=== PATIENT | female | born 1935 | race Caucasian/White ===

== ENCOUNTER → 2017-07-06 | Outpatient (CLI) | payer MEDICARE | LOC: LABWHC1 10:00 | PROVIDERS: ATTEND Internal Medicine | DX: R19.7 Diarrhea, unspecified (principal) | CPT/HCPCS: 87324; 89055 ==

== ENCOUNTER → 2017-07-11 | Outpatient (CLI) | payer MEDICARE | END | disposition home or self-care (01) | LOC: LABWHC1 12:48 | PROVIDERS: ATTEND Internal Medicine | DX: R19.7 Diarrhea, unspecified (principal) | CPT/HCPCS: 87045; 87046; 89055 ==

== ENCOUNTER → 2017-07-17 | Outpatient (CLI) | payer MEDICARE ==
--- NOTE | 2017-07-18 10:13 | ECHOF ---
Referral Reason:I35.0 Aortic valve stenosis MEASUREMENTS -------- HEIGHT: 165.1 cm WEIGHT: 90.7 kg BP: IVSd: 1.4 cm (0.6 - 1.1) LVIDd: 3.6 cm (3.9 - 5.3) LVPWd: 1.3 cm (0.6 - 1.1) IVSs: 1.6 cm LVIDs: 2.0 cm LVPWs: 1.7 cm LAESV Index (A-L): 22.39 ml/m Ao Diam: 2.8 cm (2.0 - 3.7) AV Cusp: 1.1 cm (1.5 - 2.6) LA Diam: 3.4 cm (2.7 - 3.8) MV EXCURSION: 13.536 mm (> 18.000) MV EF SLOPE: 21 mm/s (70 - 150) EPSS: 0.2 cm MV E Ronny: 0.64 m/s MV DecT: 246 ms MV A Ronny: 1.20 m/s MV E/A Ratio: 0.53 AV maxP.55 mmHg AV meanP.00 mmHg AR PHT: 503 ms RAP: 5.00 mmHg RVSP: 26.63 mmHg FINDINGS -------- Sinus rhythm. This was a technically good study. The left ventricular size is normal. There is mild concentric left ventricular hypertrophy. Overa ll left ventricular systolic function is normal with, an EF between 55 - 60 %. The right ventricle is normal in size and function. The left atrium is normal in size. The right atrium is normal in size. Aortic valve is trileaflet and is mildly thickened. There is mild aortic regurgitation. There is mild aortic stenosis present. Peak/mean gradient across the Aortic Valve is 22.55mmHg / 13.00mmHg. The mitral valve leaflets are mildly thickened. Mild mitral regurgitation is present. Mild tricuspid regurgitation present. The right ventricular systolic pressure, as measured by Doppl er, is 26.63mmHg. Pulmonic valve appears structurally normal. The aortic root, ascending aorta and aortic arch are normal. The pericardium is normal. CONCLUSIONS -------- 1. Sinus rhythm. 2. This was a technically good study. 3. The left ventricular size is normal. 4. There is mild concentric left ventricular hypertrophy. 5. Overall left ventricular systolic function is normal with, an EF between 55 - 60 %. 6. The right ventricle is normal in size and function. 7. The left atrium is normal in size. 8. The right atrium is normal in size. 9. Aortic valve is trileaflet and is mildly thickened. 10. There is mild aortic regurgitation. 11. There is mild aortic stenosis present. 12. Peak/mean gradient across the Aortic Valve is 22.55mmHg / 13.00mmHg. 13. The mitral valve leaflets are mildly thickened. 14. Mild mitral regurgitation is present. 15. Mild tricuspid regurgitation present. 16. The right ventricular systolic pressure, as measured by Doppler, is 26.63mmHg. 17. Pulmonic valve appears structurally normal. 18. The aortic root, ascending aorta and aortic arch are normal. 19. The pericardium is normal. [employer]: Katya Trotter RDCS
== END | disposition home or self-care (01) ==
LOC: RADECHMAIN 13:22
PROVIDERS: ATTEND Internal Medicine
DX: I08.3 Combined rheumatic disorders of mitral, aortic and tricuspid valves (principal)
CPT/HCPCS: 93306

== ENCOUNTER → 2019-08-28 | Outpatient (CLI) | payer MEDICARE | END | disposition home or self-care (01) | LOC: LABWHC1 10:27 | PROVIDERS: ATTEND Internal Medicine | DX: Z03.818 Encounter for observation for suspected exposure to other biological agents ruled out (principal) | CPT/HCPCS: 36415; 86769 ==

== ENCOUNTER → 2021-11-24 | Outpatient (CLI) | payer MEDICARE ==
--- NOTE | 2021-11-24 13:13 | CT ---
EXAMINATION TYPE: CT brain wo con DATE OF EXAM: 11/24/2021 COMPARISON: None HISTORY: Transient cerebral ischemic attack CT DLP: 1072.3 mGycm Automated exposure control for dose reduction was used. FINDINGS: Intracranial atherosclerotic changes are seen. Mild to moderate generalized degenerative change with low attenuation in the white matter which is nonspecific. Most likely on the basis of remote white ma tter ischemia. No acute hemorrhage or mass effect. Craniocervical junction maintained. There is a partially empty sella turcica. Calvarium intact. Hyper ostosis of the frontal bone. Minimal changes of ethmoidal chronic sinusitis. Orbits symmetric. IMPRESSION: A MILD AMOUNT OF DEGENERATIVE CHANGE WITH NONSPECIFIC LOW ATTENUATION IN THE WHITE MATTER MOST TYPICA L OF REMOTE ISCHEMIC WHITE MATTER CHANGE. PARTIALLY EMPTY SELLA TURCICA.
== END | disposition home or self-care (01) ==
LOC: RADCTMAIN 12:37
PROVIDERS: ATTEND Internal Medicine
DX: G45.9 Transient cerebral ischemic attack, unspecified (principal)
CPT/HCPCS: 70450

== ENCOUNTER → 2022-07-04 | Outpatient (CLI) | payer MEDICARE ==
--- NOTE | 2022-07-04 12:55 | BD ---
EXAMINATION TYPE: Axial Bone Density DATE OF EXAM: 07/04/2022 CLINICAL HISTORY: 86 years old Female. ICD-10 CODE: M85.851 Osteopenia right hip Height: 64.5 Weight: 202 FRAX RISK QUESTIONS: Family History (Parent hip fracture): no History of Fracture in Adulthood: no Secondary Osteoporosis: no Rheumatoid Arthritis: no RISK FACTORS HISTORY OF: Family History of Osteoporosis: no Active: yes Diet low in dairy products/other sources of calcium: no Postmenopausal woman: yes Lost more than 2 inches in height since high school: no Frequent falls: no Poor Health: no MEDICATIONS: Thyroid Medications: yes Which medication: Levothyroxine How Lon+ years Additional Medications: no Additional History: yes cervical cancer EXAM MEASUREMENTS: Bone mineral densitometry was performed using the [employer] System. Bone mineral density as measured about the Lumbar spine is: ----- L1-L4(G/cm2): 1.264 T Score Values are as follows: ----- L1: -1.4 ----- L2: 0.4 ----- L3: 2.3 ----- L4: 1.5 ----- L1-L4: 0.7 Z Score Values are as follows: ----- L1: -0.4 ----- L2: 1.5 ----- L3: 3.4 ----- L4: 2.6 ----- L1-L4: 1.8 Bone mineral density has: Increased 17.2% since study of: 07/08/2013 Bone mineral density about the R hip (g/cm2): 0.885 Bone mineral density about the L hip (g/cm2): 0.858 T Score values are as follows: -----R Neck: -1.1 -----L Neck: -1.0 -----R Total: -1.0 -----L Total: -1.2 Z Score values are as follows: -----R Neck: 0.9 -----L Neck: 1.0 -----R Total: 0.9 -----L Total: 0.6 Bone mineral density has: Decreased -3.5% since study of: 07/08/2013 FRAX%s: The graph provided illustrates a 9.2% chance for a major osteoporotic fx and a 2.3% chance fo r the hips probability for fx in 10 years time. IMPRESSION: Osteopenia (T Score between -2.5 and -1). There is slightly increased risk of fracture and the patient may be considered for treatment. Re-Screen 2-5 years. NOTE: T-SCORE=SD OF THE YOUNG ADULT MEAN.
== END | disposition home or self-care (01) ==
LOC: RADBDWWP 11:02
PROVIDERS: ATTEND Internal Medicine
DX: M85.89 Other specified disorders of bone density and structure, multiple sites (principal)
CPT/HCPCS: 77080

== ENCOUNTER → 2023-02-26 | Outpatient (CLI) | payer MEDICARE ==
--- NOTE | 2023-02-26 19:04 | XR ---
EXAMINATION TYPE: XR shoulder complete 3 views LT DATE OF EXAM: 02/26/2023 Comparison: None Clinical History: 87-year-old female M25.512 Pain of left shoulder Findings: Mild degenerative changes AC joint with marginal spurring and capsular hypertrophy. Some bony irregul arity of the greater tuberosity is noted. Minimal inferior humeral head spurring noted. Otherwise, no acute fracture, subluxation, dislocation. Impression: Some bony changes at the greater tuberosity may be seen with chronic rotator cuff tendinopathy. MRI i f concern for rotator cuff pathology. Mild AC joint OA. Early degenerative spurring of the glenohumer al joint as well.
== END | disposition home or self-care (01) ==
LOC: RADXRMAIN 15:11
PROVIDERS: ATTEND Internal Medicine
DX: M19.012 Primary osteoarthritis, left shoulder (principal)

== ENCOUNTER → 2023-06-25 | Outpatient (CLI) | payer MEDICARE ==
--- NOTE | 2023-06-25 12:27 | MR ---
EXAMINATION TYPE: MR shoulder LT wo con DATE OF EXAM: 06/25/2023 12:03 PM COMPARISON: NONE HISTORY: M25.512 PAIN LEFT SHOULDER TECHNIQUE: Multiplanar multispin echo imaging of the left shoulder was performed. FINDINGS: Rotator cuff : There is full thickness partial tear involving the supraspinatus tendon at the critica l zone and proximal to the critical zone with fluid filled gap of 1.9 cm. There is heterogeneity of t he supraspinatus tendon compatible with chronic tendinopathy with associated thinning. Additional con stituents of the rotator cuff are grossly intact. Bursa: No bursal effusion or thickening is seen. Musculature: There is no muscular tear, contusion, or atrophy. Acromioclavicular joint : Severe narrowing of the subacromial joint space compatible with the subacro mial impingement. Moderate AC joint arthropathy. Osseous structures : There are no fractures or regio ns of abnormal bone marrow signal intensity. Long biceps tendon : The biceps tendon is normally situated within the bicipital groove. No complete or partial biceps tendon tear is present. Glenohumeral Joint fluid : There is no glenohumeral joint effusion. Cartilage and Bone : No focal hyaline cartilage defects are noted. No Hill-Sachs, reverse Hill-Sachs, or bony Bankart lesions are seen. Labrum : There are no SLAP or soft tissue Bankart lesions. No paralabral cysts are seen. OTHER FINDINGS : none IMPRESSION: 1. There is full thickness partial tear involving the supraspinatus tendon at the critical zone and p roximal to the critical zone with fluid filled gap of 1.9 cm. There is heterogeneity of the supraspin atus tendon compatible with chronic tendinopathy with associated thinning. 2.Severe narrowing of the subacromial joint space compatible with the subacromial impingement. Modera te AC joint arthropathy.
== END | disposition home or self-care (01) ==
LOC: RADMRIMAIN 11:22
PROVIDERS: ATTEND Internal Medicine
DX: M75.122 Complete rotator cuff tear or rupture of left shoulder, not specified as traumatic (principal); M19.012 Primary osteoarthritis, left shoulder